=== PATIENT | female | born 1945 | race Caucasian/White ===

== ENCOUNTER → 2020-04-28 | Outpatient (CLI) | payer MEDICARE, OTHER ==
--- NOTE | 2020-04-28 12:33 | CT ---
EXAMINATION TYPE: CT abdomen pelvis wo con DATE OF EXAM: 04/28/2020 HISTORY: Calculus of kidney and right renal polar CT DLP: 332.50 mGycm. Automated Exposure Control for Dose Reduction was Utilized. TECHNIQUE: CT scan of the abdomen and pelvis is performed without oral or IV contrast. COMPARISON: Renal ultrasound 2014 FINDINGS: Within the limitations of a non-contrast study, the following observations are made. LUNG BASES: Mild linear scarring anterior bilateral bases. LIVER/GB: Lobulated rim calcified low dense lesion anterior right hepatic dome image 8 presumably arielle ign. Cholecystectomy clips noted. PANCREAS: Moderate generalized fat replaced atrophy greatest in the pancreatic head. SPLEEN: No significant abnormality is seen. ADRENALS: No significant abnormality is seen. KIDNEYS: No right-sided renal calculi or hydronephrosis. There is large 18 mm staghorn type calculus lower pole left kidney axial image 37 and sagittal image 81. No hydronephrosis noted bilaterally. Jamir tral parapelvic cyst left kidney redemonstrated along with new mild left-sided pyelocaliectasis and a symmetric proximal hydroureter, no obstructing calculus clearly seen. No calculus noted in the bladde r. BOWEL: Incidental normal-appearing appendix is seen from the cecum. Diverticula scattered throughout the colon greatest in the sigmoid colon. No CT evidence for acute diverticulitis. No suspicious bowel dilatation. GENITAL ORGANS: Uterus surgically absent or markedly atrophic. LYMPH NODES: No greater than 1cm abdominal or pelvic lymph nodes are appreciated. OSSEOUS STRUCTURES: There is metallic density with adjacent streak artifact right sacrum axial images 62 through 66. Possible surgical clips however correlate for broken needle fragment from prior pain relief injection procedure. Prominent facet arthropathy in the mid to lower lumbar spine. OTHER: Mild calcified plaque of the abdominal aorta extends into branch vessels. There is surgical cl ip in the anterior midline of the mid pelvis axial image 66. IMPRESSION: 1. There is staghorn type 18 mm calculus lower pole left kidney. There is suggestion of mild left-puja ed hydronephrosis and back from parapelvic cysts without obstructing calculus clearly seen. 2. Attention to right mid sacrum as detailed above, possible metallic needle fracture fragments noted .
== END | disposition home or self-care (01) ==
LOC: RADCTMAIN 11:06
PROVIDERS: ATTEND Urology
DX: N20.0 Calculus of kidney (principal); N28.1 Cyst of kidney, acquired; Z88.2 Allergy status to sulfonamides; Z88.8 Allergy status to other drugs, medicaments and biological substances
CPT/HCPCS: 74176

== ENCOUNTER → 2020-05-08 | Outpatient (CLI) | payer MEDICARE, OTHER ==
[2020-05-08 13:26] LABS: African American GFR (CKD) >90 (>60 ml/min/1.73 sqM); Blood Urea Nitrogen 16 mg/dL (7-17); Non-African American GFR(CKD) >90 (>60 ml/min/1.73 sqM)
--- NOTE | 2020-05-08 14:54 | CT ---
EXAMINATION TYPE: CT abdomen pelvis w con DATE OF EXAM: 05/08/2020 COMPARISON: 04/28/2020 HISTORY: Hematuria, abnormal imaging CT DLP: 549.1 mGycm Automated exposure control for dose reduction was used. CONTRAST: CT scan of the abdomen pelvis is performed with IV Contrast, patient injected with 100 mL of Isovue 3 00. FINDINGS- LUNG BASES-linear changes involving the lung bases most typical of chronic scar or atelectasis.. LIVER/GB-stable hepatic calcifications. Previous cholecystectomy changes noted. Mild central biliary dilation likely related to postcholecystectomy changes. PANCREAS- No gross abnormality is seen. SPLEEN- No gross abnormality is seen. ADRENALS- No gross abnormality is seen. KIDNEYS/BLADDER-multiple hypodensities within the kidneys too small to characterize. Parapelvic renal cysts on the left. Mild right hydronephrosis. 1.8 cm calcification lower pole the left kidney. BOWEL-bowel gas pattern nonspecific. Metallic density seen in the pelvis stable.. LYMPH NODES- No greater than 1cm abdominal or pelvic lymph nodes areappreciated. OSSEOUS STRUCTURES-mild degenerative change of the spine.. OTHER- aorta of normal caliber with atherosclerotic changes. Trace amount of air within the bladder. IMPRESSION- 1. 1.8 cm lower pole left renal calculus. No hydronephrosis. 2. Mild right hydronephrosis with no definite calcification. There also is a trace amount of air in t he bladder correlate for recent Ulloa catheter insertion otherwise consider infectious etiology. Ne elate with urinalysis as clinically warranted. 3. Mild wall thickening near the hepatic flexure could be related to incomplete distention. If there are GI related symptoms correlate with direct visualization.
== END | disposition home or self-care (01) ==
LOC: RADCTMAIN 12:34
PROVIDERS: ATTEND Urology
DX: K63.89 Other specified diseases of intestine (principal); N20.0 Calculus of kidney; R31.1 Benign essential microscopic hematuria; R93.41 Abnormal radiologic findings on diagnostic imaging of renal pelvis, ureter, or bladder; Z88.2 Allergy status to sulfonamides
CPT/HCPCS: 82565; 84520; 74177; 36415; Q9967

== ENCOUNTER → 2021-01-11 | Outpatient (CLI) | payer MEDICARE, OTHER ==
--- NOTE | 2021-01-11 17:09 | XR ---
EXAMINATION TYPE: XR KUB DATE OF EXAM: 01/11/2021 Comparison: None Clinical History: 75-year-old female N20.0 Findings: 1.3 cm calculus projecting at the lower pole the left kidney. Some surgical material in the pelvis. C holecystectomy clips. Impression: 1.3 cm left lower pole renal calculus.
== END | disposition home or self-care (01) ==
LOC: RADXRMAIN 16:06
PROVIDERS: ATTEND Urology
DX: N20.0 Calculus of kidney (principal)
CPT/HCPCS: 74018

== ENCOUNTER → 2021-01-18 | Outpatient (CLI) | payer MEDICARE, OTHER ==
--- NOTE | 2021-01-18 10:32 | US ---
EXAMINATION TYPE: US carotid duplex BILAT DATE OF EXAM: 01/18/2021 COMPARISON: NONE CLINICAL HISTORY: CAROTID STENOSIS I65.29. dizziness, high blood pressure, eye problems per pt. EXAM MEASUREMENTS: RIGHT: Peak Systolic Velocity (PSV) cm/sec ----- Right CCA: 108.4 ----- Right ICA: 141.5 ----- Right ECA: 130.2 ICA/CCA ratio: 1.3 RIGHT: End Diastole cm/sec ----- Right CCA: 25.6 ----- Right ICA: 37.9 ----- Right ECA: 16.9 LEFT: Peak Systolic Velocity (PSV) cm/sec ----- Left CCA: 110.8 ----- Left ICA: 127.0 ----- Left ECA: 109.2 ICA/CCA ratio: 1.1 LEFT: End Diastole cm/sec ----- Left CCA: 28.0 ----- Left ICA: 38.1 ----- Left ECA: 17.1 VERTEBRALS (direction of flow): Right Vertebral: Antegrade Left Vertebral: Antegrade Rhythm: Normal Mild atherosclerotic changes and calcified plaque. Tortuous vessels. IMPRESSION: No evidence for hemodynamically significant stenosis. NASCET criteria was used in interpretation of this exam? Criteria for Assigning % of Stenosis / Diameter reduction (Estimation based on the indirect measurements of the internal carotid artery velocities (ICA PSV). 1. Normal (no stenosis)=ICA PSV < 125 cm/s: ratio < 2.0: ICA EDV<40 cm/s. 2. Less than 50% stenosis=ICA PSV < 125 cm/s: ratio < 2.0: ICA EDV<40 cm/s. 3. 50 to 69% stenosis=ICA PSV of 125 to 230 cm/s: ration 2.0 ? 4.0: ICA EDV 40-100 cm/s. 4. Greater than 70% stenosis to near occlusion= ICA PSV > 230 cm/s: ratio > 4.0: ICA EDV > 100 cm/s. 5. Near occlusion= ICA PSV velocities may be low or undetectable: variable ratio and ICA EDV. 6. Total occlusion=unable to detect flow.
== END | disposition home or self-care (01) ==
LOC: RADUSWWP 09:42
PROVIDERS: ATTEND Family Medicine
DX: I65.29 Occlusion and stenosis of unspecified carotid artery (principal); R42 Dizziness and giddiness; R03.0 Elevated blood-pressure reading, without diagnosis of hypertension
CPT/HCPCS: 93880

== ENCOUNTER → 2021-01-18 | Outpatient (CLI) | payer MEDICARE, OTHER ==
[2021-01-18 09:45] LABS: ALT 20 U/L (4-34); African American GFR (CKD) >90 (>60 ml/min/1.73 sqM); Albumin 4.9 g/dL (3.5-5.0); Albumin/Globulin Ratio 1.7; Anion Gap 11 mmol/L; Blood Urea Nitrogen 17 mg/dL (7-17); Calcium 9.7 mg/dL (8.4-10.2); Carbon Dioxide 23 mmol/L (22-30); Chloride 105 mmol/L (98-107); Globulin 2.9 g/dL; Glucose 123 mg/dL (74-99); Non-African American GFR(CKD) >90 (>60 ml/min/1.73 sqM); Sodium 139 mmol/L (137-145); Total Bilirubin 0.6 mg/dL (0.2-1.3); Total Protein 7.8 g/dL (6.3-8.2)
[2021-01-18 09:50] LABS: AST 31 U/L (14-36); Alkaline Phosphatase 101 U/L (38-126); Potassium 4.6 mmol/L (3.5-5.1)
[2021-01-18 09:58] LABS: Basophils % (A) 1 %; Eosinophils % (A) 1 %; HCT 38.2 % (34.0-46.0); HGB 13.1 gm/dL (11.4-16.0); Lymphocytes # (A) 1.5 k/uL (1.0-4.8); Lymphocytes % (A) 24 %; MCH 31.1 pg (25.0-35.0); MCHC 34.3 g/dL (31.0-37.0); MCV 90.8 fL (80.0-100.0); Mean Platelet Volume 8.9; Monocytes # (A) 0.5 k/uL (0-1.0); Monocytes % (A) 8 %; Neutrophils # (A) 4.3 k/uL (1.3-7.7); Neutrophils % (A) 65 %; Platelet Count 244 k/uL (150-450); RBC 4.21 m/uL (3.80-5.40); RDW 12.9 % (11.5-15.5); WBC 6.5 k/uL (3.8-10.6)
[2021-01-18 10:47] LABS: Erythrocyte Sedimentation Rate 8 mm/hr (0-20)
[2021-01-18 17:59] LABS: Chol/HDL Ratio 3.27; Cholesterol 216 mg/dL (0-200); LDL Cholesterol,Calculated 125.2 mg/dL (0.0-131.0)
== END | disposition home or self-care (01) ==
LOC: LABWHC1 08:52
PROVIDERS: ATTEND Ophthalmology Retina Specialist
DX: M31.6 Other giant cell arteritis (principal); I10 Essential (primary) hypertension
CPT/HCPCS: 36415; 80053; 80061; 83516; 84443; 85025; 85652